=== PATIENT | female | born 1965 | race African-American/Black ===

== ENCOUNTER → 2016-04-24 | Outpatient (CLI) | payer BC | LOC: RAD 09:24 | PROVIDERS: ATTEND Family Medicine | DX: R09.89 Other specified symptoms and signs involving the circulatory and respiratory systems (principal); I70.0 Atherosclerosis of aorta | CPT/HCPCS: 76706 ==

== ENCOUNTER 2019-11-23 08:02 | Outpatient (CLI) | payer BC ==
[~2019-11-23 08:02] MED LIST: FERUMOXYTOL (NON-ESRD) 510 MG/NS 100 ML IV PRN; NORMAL SALINE 250 ML IV PRN
[2019-11-23 08:26] VITALS: BP 152/95
== END 2019-11-23 09:30 | disposition home or self-care (01) ==
LOC: II 08:02 → 5TH 08:17 → II 09:30
PROVIDERS: ATTEND Internal Medicine
DX: D50.8 Other iron deficiency anemias (principal); K90.9 Intestinal malabsorption, unspecified
CPT/HCPCS: 96365; Q0138; J7050

== ENCOUNTER 2019-12-03 13:35 | Outpatient (CLI) | payer BC ==
[~2019-12-03 13:35] MED LIST changes: +FERUMOXYTOL (ESRD) 510 MG/NS 100 ML IV PRN
[2019-12-03 14:06] VITALS: BP 172/90
== END 2019-12-03 14:22 | disposition home or self-care (01) ==
LOC: II 13:35 → 5TH 13:43 → II 14:22
PROVIDERS: ATTEND Internal Medicine
DX: D50.8 Other iron deficiency anemias (principal); K90.9 Intestinal malabsorption, unspecified
CPT/HCPCS: 96365; Q0139; J7050; Q0138